=== PATIENT | male | born 1985 | race Caucasian/White ===

== ENCOUNTER 2017-04-28 00:45 | Emergency (ER) | payer MEDICAID ==
[~2017-04-28] VITALS: Ht 188 cm; Wt 86.2 kg
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
[2017-04-28] MEDS ORDERED: CYCLOBENZAPRINE 10 MG TABLET ONE (01:30)
[2017-04-28] MEDS ORDERED: HYDROCODONE/APAP 10/325MG 1 EA TABLET ONE (01:30)
[2017-04-28] MEDS ORDERED: CYCLOBENZAPRINE 10 MG TABLET PO ONE (01:30)
[2017-04-28] MEDS ORDERED: ONDANSETRON 4 MG TAB.RAPDIS SL ONE (01:30)
[2017-04-28] MEDS ORDERED: HYDROCODONE/APAP 10/325MG 1 EA TABLET PO ONE (01:30)
[2017-04-28] MEDS ORDERED: ONDANSETRON 4 MG TAB.RAPDIS ONE (01:31)
--- NOTE | 2017-04-28 01:34 | NUR ---
PT MEDICATED ORDERED.
--- NOTE | 2017-04-28 02:32 | NUR ---
Patient discharged to home in stable condition. Written and verbal after care instructions given. Patient verbalizes understanding of instruction. Pt s/o at bedside to take pt home. advice pt not to drive or operate any machinery due to pt was given narcotic medicine. pt verbalize understanding.
[2017-04-28 02:37] VITALS: BP 123/64
== END 2017-04-28 02:41 | disposition home or self-care (01) ==
LOC: ER 00:46
DX: S83.92XA Sprain of unspecified site of left knee, initial encounter (principal); S70.312A Abrasion, left thigh, initial encounter; S80.212A Abrasion, left knee, initial encounter; S49.92XA Unspecified injury of left shoulder and upper arm, initial encounter; V02.99XA Pedestrian with other conveyance injured in collision with two- or three-wheeled motor vehicle, unspecified whether traffic or nontraffic accident, initial encounter; Y93.89 Activity, other specified; Y92.89 Other specified places as the place of occurrence of the external cause; Y99.9 Unspecified external cause status
CPT/HCPCS: 73030-TC; 73502; 73564-TC; A4606; Q0162; Z7610